=== PATIENT | male | born 1935 | race African-American/Black ===

== ENCOUNTER 2017-03-05 22:20 | Emergency (ER) | payer OTHER, BC ==
[2017-03-05 23:26] LABS: BASOPHIL % 0.4 % (0-2); RED CELL DISTRIBUTION WIDTH 14.4 % (11.5-14.5)
[2017-03-05 23:29] LABS: PLATELET COUNT 115 x10^3mcL (130-400)
[2017-03-05 23:38] LABS: ALBUMIN 3.5 g/dL (3.4-5.0); ALKALINE PHOSPHATASE 65 U/L (46-116); ALT/SGPT 8 U/L (16-63); AST/SGOT 8 U/L (15-37); BILIRUBIN TOTAL 0.3 mg/dL (0.20-1.00); CALCIUM 9.2 mg/dL (8.5-10.1); CARBON DIOXIDE 37.7 mmol/L (21-32); CHLORIDE SERUM 96 mmol/L (98-107); GLUCOSE SERUM 86 mg/dL (74-106); POTASSIUM SERUM 3.8 mmol/L (3.5-5.1); SODIUM SERUM 141 mmol/L (136-145); TOTAL PROTEIN, SERUM 6.6 g/dL (6.4-8.2)
[2017-03-05 23:44] LABS: CREATININE SERUM 7.4 mg/dL (0.7-1.3)
[2017-03-05 23:47] LABS: CK-MB 0.8 ng/mL (0-3.6)
[2017-03-06 02:03] VITALS: BP 118/62
== END 2017-03-06 01:44 | disposition home or self-care (01) ==
LOC: ED 22:20
PROVIDERS: Emergency Medicine
DX: I95.9 Hypotension, unspecified (principal); I13.11 Hypertensive heart and chronic kidney disease without heart failure, with stage 5 chronic kidney disease, or end stage renal disease; I25.2 Old myocardial infarction; N18.6 End stage renal disease; Z99.2 Dependence on renal dialysis; Z86.73 Personal history of transient ischemic attack (TIA), and cerebral infarction without residual deficits
CPT/HCPCS: 83880; Q0092